=== PATIENT | female | born 2000 | race Caucasian/White ===

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

== ENCOUNTER 2020-04-21 07:43 | Day surgery (SDC) | payer OTHER ==
[~2020-04-21] VITALS: Ht 167 cm; Wt 86.0 kg
[~2020-04-21 07:43] MED LIST changes: +ACHD5005 PO; -HYDR-3812 PO; -IBUP-2055 PO; +IBUP-2473 PO; +PRD10T PO
[2020-04-21] MEDS ORDERED: ANTACID SUSP 30 ML UDC (MYLANTA) ONE (08:08)
[2020-04-21] MEDS ORDERED: ONDANSETRON 4 MG/2 ML (SDV) Z0FRAN ONE (08:08)
[2020-04-21] MEDS ORDERED: LACTATED RINGERS 1,000 ML IV ONE ×3 (08:08→12:30)
[2020-04-21] MEDS ORDERED: FAMOTIDINE 20MG/2ML IV (PEPCID) IV STA (08:09)
[2020-04-21] MEDS ORDERED: FAMOTIDINE 20MG/2ML IV (PEPCID) ONE (08:09)
[2020-04-21] MEDS ORDERED: LIDOCAINE 2% VISCOUS 15 ML UDC ONE (08:09)
[2020-04-21] MEDS ORDERED: ANTACID SUSP 30 ML UDC (MYLANTA) PO ONE (08:15)
[2020-04-21] MEDS ORDERED: LIDOCAINE 2% VISCOUS 15 ML UDC PO ONE (08:15)
[2020-04-21] MEDS ORDERED: ONDANSETRON 4 MG/2 ML (SDV) Z0FRAN IVP ONE ×2 (08:15→16:00)
--- NOTE | 2020-04-21 08:16 | ED Abdominal Pain ---
General Stated Complaint: SOB, BODY ACHES Source of Information: Patient Exam Limitations: No Limitations History of Present Illness Date Seen by Provider: Apr 21, 2020 Time Seen by Provider: 07:55 Initial Comments The patient presents to the ER by private conveyance from home with chief complaint of what she describes as chest pain as she points at her epigastric region. She says it started late last night after eating chicken noodles for dinner. It is worse with laying down flat. She took an ibuprofen 800 mg with no significant relief. She did not try any antacids. She says the pain radiates up to her left shoulder. She has had her appendix out but no other abdominal surgeries. Last menstrual period was March 28. She has an IUD in place and no other significant medical history. No one else is sick and she has had no fevers or chills. She says it makes her feel like it is hard to catch her breath and rates her pain as an 8 out of 10, cramping. She is felt constipated and unable to have a bowel movement and has had nausea with retching since yesterday. Primary care by Dr. Mckenna Allergies and Home Medications Allergies Coded Allergies: Kaylee Known Allergies (Verified Allergy, Unknown, 06/14/06) Home Medications Cyclobenzaprine HCl 10 Mg Tablet, 10 MG PO HS PRN for SPASMS Prescribed by: CHETAN HERNANDES on 10/03/16212 Escitalopram Oxalate 20 Mg Tablet, 20 MG PO DAILY, (Reported) Hydroxyzine Pamoate 50 Mg Capsule, 50 MG PO Q6H Prescribed by: SHON WARD on 12/02/15 3487 Norgestimate-Ethinyl Estradiol 1 Each Tablet, 1 TAB PO DAILY, (Reported) Prednisone 10 Mg Tab, 10 MG PO DAILY Prescribed by: CHETAN HERNANDES on 10/03/16212 Patient Home Medication List Home Medication List Reviewed: Yes Review of Systems Review of Systems Constitutional: No chills, No diaphoresis EENTM: No Blurred Vision, No Double Vision Respiratory: Denies Cough, Denies Orthopnea; Shortness of Air Cardiovascular: Chest Pain; Denies Edema, Denies Lightheadedness Gastrointestinal: Abdominal Pain, Constipated; Denies Diarrhea; Nausea, Vomiting Genitourinary: Denies Burning, Denies Discharge Musculoskeletal: No back pain, No joint pain Psychiatric/Neurological: Denies Depressed, Denies Headache All Other Systems Reviewed Negative Unless Noted: Yes Past Tpcspzl-Hojrua-Lpsgne Hx Patient Social History Alcohol Use: Denies Use Smoking Status: Never a Smoker Recent Hopitalizations: No Immunizations Up To Date PED Vaccines UTD: Yes Seasonal Allergies Seasonal Allergies: No Past Medical History Surgeries: Yes (CYSTOSCOPY; LAP APPY 11/27/14) Appendectomy, Tonsillectomy Respiratory: Yes (PRN INHALER) Asthma Cardiac: No Neurological: No Reproductive Disorders: No Female Reproductive Disorders: Denies UTI-Chronic Gastrointestinal: No Musculoskeletal: No Endocrine: No Cancer: No Psychosocial: Yes Anxiety, Depression Integumentary: No Blood Disorders: No Family Medical History Anxiety disorder 19 MOTHER Arthritis 19 MOTHER Diabetes mellitus 19 MOTHER FH: depression 19 MOTHER Hypercholesterolemia 19 MOTHER Hypertension 19 MOTHER Physical Exam Vital Signs Vital Signs - First Documented 04/21/20 08:00 Temp 36.0 Pulse 125 Resp 24 B/P (MAP) 130/80 (97) Pulse Ox 100 O2 Delivery Room Air Capillary Refill : Height/Weight/BMI Height: 5'7.00" Weight: 215lbs. 0.0oz. 97.735622vi; 28.12 BMI Method:Stated General Appearance: WD/WN, moderate distress HEENT: PERRL/EOMI, pharynx normal Neck: full range of motion, normal inspection Respiratory: lungs clear, normal breath sounds, no respiratory distress, no acc essory muscle use Cardiovascular: normal peripheral pulses, regular rate, rhythm Peripheral Pulses: 2+ Radial Pulses (R), 2+ Radial Pulses (L) Gastrointestinal: normal bowel sounds (Quiescent ), no organomegaly, guarding, tenderness (Epigastric left upper quadrant and right upper quadrant with positive Bennett sign) Extremities: normal range of motion, non-tender, normal inspection, no pedal edema, no calf tenderness, normal capillary refill Neurologic/Psychiatric: alert, oriented x 3 Skin: normal color, warm/dry Progress/Results/Core Measures Results/Orders Lab Results Laboratory Tests Test 04/21/20 08:05 04/21/20 08:10 04/21/20 09:10 Range/Units Coronavirus 2019 (HUSSAIN) Negative Negative White Blood Count 14.4 H 4.3-11.0 10^3/uL Red Blood Count 3.84 3.80-5.11 10^6/uL Hemoglobin 11.8 11.5-16.0 g/dL Hematocrit 35 35-52 % Mean Corpuscular Volume 90 80-99 fL Mean Corpuscular Hemoglobin 31 25-34 pg Mean Corpuscular Hemoglobin Concent 34 32-36 g/dL Red Cell Distribution Width 12.5 10.0-14.5 % Platelet Count 357 130-400 10^3/uL Mean Platelet Volume 9.6 9.0-12.2 fL Immature Granulocyte % (Auto) 0 % Neutrophils (%) (Auto) 69 42-75 % Lymphocytes (%) (Auto) 23 12-44 % Monocytes (%) (Auto) 7 0-12 % Eosinophils (%) (Auto) 0 0-10 % Basophils (%) (Auto) 0 0-10 % Neutrophils # (Auto) 10.0 H 1.8-7.8 10^3/uL Lymphocytes # (Auto) 3.3 1.0-4.0 10^3/uL Monocytes # (Auto) 1.0 0.0-1.0 10^3/uL Eosinophils # (Auto) 0.1 0.0-0.3 10^3/uL Basophils # (Auto) 0.1 0.0-0.1 10^3/uL Immature Granulocyte # (Auto) 0.0 0.0-0.1 10^3/uL Neutrophils % (Manual) 64 % Lymphocytes % (Manual) 26 % Monocytes % (Manual) 8 % Eosinophils % (Manual) 1 % Basophils % (Manual) 1 % Blood Morphology Comment NORMAL Sodium Level 139 135-145 MMOL/L Potassium Level 3.7 3.6-5.0 MMOL/L Chloride Level 108 H 98-107 MMOL/L Carbon Dioxide Level 20 L 21-32 MMOL/L Anion Gap 11 5-14 MMOL/L Blood Urea Nitrogen 17 7-18 MG/DL Creatinine 0.70 0.60-1.30 MG/DL Estimat Glomerular Filtration Rate > 60 BUN/Creatinine Ratio 24 Glucose Level 117 H 70-105 MG/DL Calcium Level 8.6 8.5-10.1 MG/DL Corrected Calcium 8.4 L 8.5-10.1 MG/DL Total Bilirubin 0.9 0.1-1.0 MG/DL Aspartate Amino Transf (AST/SGOT) 11 5-34 U/L Alanine Aminotransferase (ALT/SGPT) 12 0-55 U/L Alkaline Phosphatase 64 40-136 U/L C-Reactive Protein High Sensitivity 0.24 0.00-0.50 MG/DL Total Protein 6.8 6.4-8.2 GM/DL Albumin 4.2 3.2-4.5 GM/DL Lipase 14 8-78 U/L Urine Color ORANGE Urine Clarity SL CLOUDY Urine pH 6.5 5-9 Urine Specific Lead 1.025 H 1.016-1.022 Urine Protein TRACE H NEGATIVE Urine Glucose (UA) NEGATIVE NEGATIVE Urine Ketones NEGATIVE NEGATIVE Urine Nitrite NEGATIVE NEGATIVE Urine Bilirubin NEGATIVE NEGATIVE Urine Urobilinogen 0.2 < = 1.0 MG/DL Urine Leukocyte Esterase TRACE H NEGATIVE Urine RBC (Auto) NEGATIVE NEGATIVE Urine RBC NONE /HPF Urine WBC 2-5 /HPF Urine Squamous Epithelial Cells 2-5 /HPF Urine Crystals NONE /LPF Urine Bacteria MODERATE H /HPF Urine Casts NONE /LPF Urine Mucus MODERATE H /LPF Urine Culture Indicated YES My Orders Orders - BROOKLYNN WHITNEY Chest 1 View, Ap/Pa Only (04/21/20 08:09) Hs C Reactive Protein (04/21/20 08:09) Ua Culture If Indicated (04/21/20 08:09) Urine Bedside (04/21/20 08:09) Cbc With Automated Diff (04/21/20 08:09) Comprehensive Metabolic Panel (04/21/20 08:09) Lipase (04/21/20 08:09) Covid 19 Inhouse Test (04/21/20 08:09) Ondansetron Injection (Zofran Injectio (04/21/20 08:15) Lactated Ringers (Lr 1000 Ml Iv Solution (04/21/20 08:15) Lidocaine 2% Viscous 15 Ml (Xylocaine Vi (04/21/20 08:15) Antacid Suspension (Mylanta Suspension (04/21/20 08:15) Famotidine Injection (Pepcid Injection) (04/21/20 08:09) Lactated Ringers (Lr 1000 Ml Iv Solution (04/21/20 08:08) Antacid Suspension (Mylanta Suspension (04/21/20 08:08) Ondansetron Injection (Zofran Injectio (04/21/20 08:08) Lidocaine 2% Viscous 15 Ml (Xylocaine Vi (04/21/20 08:09) Famotidine Injection (Pepcid Injection) (04/21/20 08:09) Manual Differential (04/21/20 08:10) Us Gallbladder 60[address] (04/21/20 09:16) Ed Iv/Invasive Line Start (04/21/20 09:16) Ketorolac Injection (Toradol Injection) (04/21/20 09:30) Urine Culture (04/21/20 09:10) Ct Abdomen/Pelvis W (04/21/20 10:23) Iohexol Injection (Omnipaque 350 Mg/Ml 1 (04/21/20 10:30) Received Contrast (Hold Metformin- Contr (04/21/20 10:30) Sodium Chloride Flush (Catheter Flush Sy (04/21/20 10:30) Ns (Ivpb) (Sodium Chloride 0.9% Ivpb Bag (04/21/20 10:30) Fentanyl Injection (Sublimaze Injection (04/21/20 10:30) Blood Culture (04/21/20 12:18) Lactic Acid Analyzer (04/21/20 12:18) Neis Yoel Dna Urine Test (04/21/20 12:18) Chlamydia Trachomatis Urine (04/21/20 12:18) Syphilis Antibody Screen (04/21/20 12:18) Piperacillin Sodium/Tazobactam (Zosyn Vi (04/21/20 12:30) Doxycycline Injection (Vibramycin Inject (04/21/20 12:30) Fentanyl Injection (Sublimaze Injection (04/21/20 12:30) Protime With Inr (04/21/20 12:23) Partial Thromboplastin Time (04/21/20 12:23) Ed Iv/Invasive Line Start (04/21/20 12:23) Ed Iv/Invasive Line Start (04/21/20 12:23) Vital Signs Adult Sepsis Patie Q15M (04/21/20 12:23) O2 (04/21/20 12:23) Remove Rings In Anticipation O (04/21/20 12:23) Lactated Ringers (Lr 1000 Ml Iv Solution (04/21/20 12:30) Medications Given in ED Current Medications Medications Dose Ordered Sig/Susan Route Start Time Stop Time Status Last Admin Dose Admin Al Hydrox/Mg Hydrox/Simethicone 30 ml ONCE ONCE PO 2/22/21 08:15 04/21/20 08:16 DC 04/21/20 08:15 30 ML Fentanyl Citrate 50 mcg ONCE ONCE IVP 04/21/20 10:30 04/21/20 10:31 DC 04/21/20 10:36 50 MCG Iohexol 100 ml ONCE ONCE IV 04/21/20 10:30 04/21/20 10:31 DC 04/21/20 10:44 100 ML Ketorolac Tromethamine 30 mg ONCE ONCE IVP 04/21/20 09:30 04/21/20 09:31 DC 04/21/20 09:30 30 MG Lactated Ringer's 1,000 ml @ 0 mls/hr Q0M ONCE IV 04/21/20 08:15 04/21/20 08:16 DC 04/21/20 08:15 1,000 MLS/HR Lidocaine HCl 15 ml ONCE ONCE PO 04/21/20 08:15 04/21/20 08:16 DC 04/21/20 08:15 15 ML Ondansetron HCl 8 mg ONCE ONCE IVP 04/21/20 08:15 04/21/20 08:16 DC 04/21/20 08:15 8 MG Sodium Chloride 10 ml NEEDED PRN IV 04/21/20 10:30 04/21/20 10:44 10 ML Sodium Chloride 100 ml ONCE ONCE IV 04/21/20 10:30 04/21/20 10:31 DC 04/21/20 10:44 80 ML Vital Signs/I&O 04/21/20 08:00 Temp 36.0 Pulse 125 Resp 24 B/P (MAP) 130/80 (97) Pulse Ox 100 O2 Delivery Room Air Progress Progress Note #1: Time: 08:15 Progress Note The patient indicates her epigastric region. She is on NSAIDs for the past 3 weeks for TMJ so gastritis, PUD, GERD, gallbladder or less likely pancreatitis or possibilities. It is not felt that her shortness of breath or pain is coming from her chest however we will get an x-ray and check labs including a lipase and urinalysis. We will start with a GI cocktail and ondansetron for nausea and reexamine her. Progress Note #2: Time: 09:18 Progress Note The patient's nausea is gone however her pain is untouched 7 out of 10. We are able to get a better examination of her abdomen with some mild right lower q uadrant tenderness, moderate epigastric tenderness and most of her tenderness in the right upper quadrant with positive Bennett sign. She did have a sip of water at 430 this morning. GI cocktail did nothing for her pain. Plan to get an ultrasound of her gallbladder. Toradol for her discomfort. Progress Note #3: Time: 10:24 Progress Note Ruptured ovarian cyst could explain the free fluid seen in her abdomen on ultrasound. We are going to get a CT just to rule out any other significant pathology. Diagnostic Imaging Diagonstic Imaging: Xray Plain Films/CT/US/NM/MRI: chest Comments [facility] [place] [place] NAME: OLEG CHRISTY [facility] REC#: [id number] PT STATUS: REG ER : 2000 PHYSICIAN: BROOKLYNN WHITNEY MD ADMIT DATE: 04/21/20/ER Draft Date of Exam:04/21/20 CHEST 1 VIEW, AP/PA ONLY INDICATION: Shortness of air. TIME OF EXAM: 8:31 AM. COMPARISON: Correlation is made with the prior chest radiograph from 12/01/2015. FINDINGS: The heart size is normal. The pulmonary vascularity is unremarkable. The lungs are clear. No infiltrate, effusion, or pneumothorax is detected. IMPRESSION: No acute cardiopulmonary process is detected. Dictated on workstation # [id number] Dict: 04/21/20 0838 Trans: 04/21/20 0839 [id number] Interpreted by: GEOFFREY BARBOSA MD Electronically signed by: Reviewed: Reviewed by Me Diagonstic Imaging: Ultrasound Plain Films/CT/US/NM/MRI: abdomen (ruq) Comments Small amount of anechoic fluid around the liver. No ductal dilatation or cholecystitis or stones. [facility] [place], [place] NAME: OLEG CHRISTY [employer] REC#: [id number] PT STATUS: REG ER : 2000 PHYSICIAN: BROOKLYNN WHITNEY MD ADMIT DATE: 04/21/20/ER Signed Date of Exam:04/21/20 US GALLBLADDER [id number] PROCEDURE: US Gallbladder. TECHNIQUE: Multiple real-time grayscale images were obtained over the right upper quadrant in various projections. INDICATION: Right upper quadrant pain. Positive Bennett's sign. COMPARISON: None. FINDINGS: Imaged portions of the pancreas are unremarkable. The body and tail are obscured by bowel gas. Imaged portions of the aorta and IVC appear normal. Echogenicity of the liver appears normal with no focal lesions. No biliary dilatation is seen. There is a small amount of free fluid about the liver and in Morison's pouch. The main portal vein is hepatopetal. The common bile duct is normal in size measuring 5 mm. The gallbladder demonstrates a thin wall with no calcified stones. Sonographic Bennett's sign is negative. The right kidney measures 12.2 cm in length. Echogenicity appears normal. There is no hydronephrosis or shadowing stone. IMPRESSION: 1. No cholelithiasis or cholecystitis. No acute hepatic abnormality is seen. 2. Small amount of ascites. Dictated by: Dictated on workstation # [id number] Dict: 04/21/20 1050 Trans: 04/21/20 1057 [id number] Interpreted by: STEVEN VELIZ MD Electronically signed by: STEVEN VELIZ MD 04/21/20 1057 Reviewed: Reviewed by Hi Diagonstic Imaging: CT Plain Films/CT/US/NM/MRI: abdomen, pelvis Comments [facility] [place] [place] [place] NAME: OLEG CHRISTY Jose Antonio [facility] REC#: [id number] PT STATUS: REG ER : 2000 PHYSICIAN: BROOKLYNN WHITNEY MD ADMIT DATE: 04/21/20/ER Draft Date of Exam:04/21/20 CT ABDOMEN/PELVIS W EXAMINATION: CT Abdomen and Pelvis with intravenous contrast. TECHNIQUE: Multiple contiguous axial images were obtained through the abdomen and pelvis after the uneventful administration of intravenous contrast. All CT scans use one or more of the following dose optimizing techniques: automated exposure control, MA and/or KvP adjustment based on a patient size and exam type, or iterative reconstruction. HISTORY: Abdominal pain. COMPARISON: 12/02/2014 FINDINGS: Limited views of the lower thorax are unremarkable. There is a cyst in segment seven of the liver, new from prior exam and measuring 11 mm. There is no biliary ductal dilation. Gallbladder is normal. Pancreas is normal. Spleen is normal. Adrenal glands are normal. The kidneys are normal. There is no hydronephrosis. Urinary bladder is normal. An intrauterine device is present. The pelvic fat planes are effaced and there is a moderate amount of fluid in the pelvis with a right ovarian 3.2 x 2.8 cm rim-enhancing collection. Pelvic fluid extends along both pericolic gutters and surrounds the liver and spleen. Visualized bowel is normal in caliber without obstruction or inflammation. There is no free air. No abdominal or pelvic lymphadenopathy. Aorta is normal in caliber without aneurysm. There are no suspicious osseous lesions. IMPRESSION: 1. Extensive stranding and fluid in the pelvis with effacement of the pelvic fat planes and fluid extending along both pericolic gutters surrounds the spleen and liver with an associated 3.2 x 2.8 cm rim-enhancing collection in the right adnexa. Findings are most concerning for pelvic inflammatory disease with tubo-ovarian abscess. Dictated on workstation # [id number] Dict: 04/21/20 1052 Trans: 04/21/20 1109 [id number] Interpreted by: TALISHA UMANZOR MD Electronically signed by: Reviewed: Reviewed by Me Departure Communication (Admissions) Time/Spoke to Admitting Phy: 12:15 Discussed the case with Dr. Pinto, obstetrics and she agrees to admit the patient on antibiotics and if not improving will do surgery today. N.p.o. status. Cultures and gonorrhea chlamydia. Impression Primary Impression: Tubal ovarian abscess Additional Impression: Sepsis Qualified Codes: A41.9 - Sepsis, unspecified organism Disposition: ADMITTED INPATIENT Condition: Stable Admissions Decision to Admit Reason: Admit from ER (General) Decision to Admit/Date: Apr 21, 2020 Time/Decision to Admit Time: 12:00 Departure-Patient Inst. Referrals: KING MCKENNA DO (PCP/Family) Primary Care Physician BROOKLYNN WHITNEY Apr 21, 2020 08:16
[2020-04-21 08:24] LABS: BASOPHILS # (AUTO) 0.1 10^3/uL (0.0-0.1); BASOPHILS % (AUTO) 0 % (0-10); EOSINOPHILS # (AUTO) 0.1 10^3/uL (0.0-0.3); EOSINOPHILS % (AUTO) 0 % (0-10); HEMATOCRIT 35 % (35-52); HEMOGLOBIN 11.8 g/dL (11.5-16.0); LYMPHOCYTES # (AUTO) 3.3 10^3/uL (1.0-4.0); LYMPHOCYTES % (AUTO) 23 % (12-44); MEAN CORPUSCULAR HEMOGLOBIN 31 pg (25-34); MEAN CORPUSCULAR HGB CONC 34 g/dL (32-36); MEAN CORPUSCULAR VOLUME 90 fL (80-99); MEAN PLATELET VOLUME 9.6 fL (9.0-12.2); MONOCYTES % (AUTO) 7 % (0-12); NEUTROPHILS % (AUTO) 69 % (42-75); PLATELET COUNT 357 10^3/uL (130-400); WHITE BLOOD COUNT 14.4 10^3/uL (4.3-11.0)
[2020-04-21 08:30] LABS: ALBUMIN 4.2 GM/DL (3.2-4.5); CHLORIDE 108 MMOL/L (98-107); POTASSIUM 3.7 MMOL/L (3.6-5.0); SODIUM 139 MMOL/L (135-145)
[2020-04-21 08:31] LABS: CALCIUM 8.6 MG/DL (8.5-10.1)
[2020-04-21 08:32] LABS: GLUCOSE 117 MG/DL (70-105); TOTAL PROTEIN 6.8 GM/DL (6.4-8.2)
[2020-04-21 08:33] LABS: CARBON DIOXIDE 20 MMOL/L (21-32)
[2020-04-21 08:34] LABS: BILIRUBIN,TOTAL 0.9 MG/DL (0.1-1.0)
[2020-04-21 08:36] LABS: ALKALINE PHOSPHATASE 64 U/L (40-136); GFR ESTIMATED > 60
[2020-04-21 08:37] LABS: BUN/CREATININE RATIO 24
[2020-04-21 08:39] LABS: ALANINE AMINOTRANSFERASE 12 U/L (0-55); LIPASE 14 U/L (8-78)
--- NOTE | 2020-04-21 08:40 | Diagnostic Imaging Report ---
INDICATION: Shortness of air. TIME OF EXAM: 8:31 AM. COMPARISON: Correlation is made with the prior chest radiograph from 12/01/2015. FINDINGS: The heart size is normal. The pulmonary vascularity is unremarkable. The lungs are clear. No infiltrate, effusion, or pneumothorax is detected. IMPRESSION: No acute cardiopulmonary process is detected. Dictated by: Dictated on workstation # [id number]
[2020-04-21 08:43] LABS: BASOPHILS % (MANUAL) 1 %; EOSINOPHILS % (MANUAL) 1 %; LYMPHOCYTES % (MANUAL) 26 %; MONOCYTES % (MANUAL) 8 %; NEUTROPHILS % (MANUAL) 64 %; RBC MORPH NORMAL
[2020-04-21 09:22] LABS: BILIRUBIN,URINE NEGATIVE (NEGATIVE); CLARITY,URINE SL CLOUDY; COLOR,URINE ORANGE; GLUCOSE, URINE (UA) NEGATIVE (NEGATIVE); KETONES,URINE NEGATIVE (NEGATIVE); LEUKOCYTE ESTERASE ,URINE TRACE (NEGATIVE); NITRITE,URINE NEGATIVE (NEGATIVE); PH,URINE 6.5 (5-9); PROTEIN,URINE TRACE (NEGATIVE)
[2020-04-21 09:29] LABS: BACTERIA,URINE MODERATE /HPF
[2020-04-21] MEDS ORDERED: KETOROLAC 30 MG/ML VIAL IVP ONE (09:30)
[2020-04-21] MEDS ORDERED: IOHEXOL 350 MG/ML 100 ML (OMNIPAQUE 350) VIAL IV ONE (10:30)
[2020-04-21] MEDS ORDERED: fentaNYL INJECTION 100 MCG/2 ML AMP IVP ONE ×2 (10:30→12:30)
[2020-04-21] MEDS ORDERED: NS 100 ML (IVPB) BAG IV ONE (10:30)
[2020-04-21] MEDS ORDERED: CATHETER FLUSH 10 ML SYR IV PRN ×2 (10:30→16:30)
[2020-04-21] MEDS ORDERED: HOLD METFORMIN - RECEIVED CONTRAST 20 ML VIAL IV SCH (10:30)
--- NOTE | 2020-04-21 10:57 | Diagnostic Imaging Report ---
PROCEDURE: US Gallbladder. TECHNIQUE: Multiple real-time grayscale images were obtained over the right upper quadrant in various projections. INDICATION: Right upper quadrant pain. Positive Bennett's sign. COMPARISON: None. FINDINGS: Imaged portions of the pancreas are unremarkable. The body and tail are obscured by bowel gas. Imaged portions of the aorta and IVC appear normal. Echogenicity of the liver appears normal with no focal lesions. No biliary dilatation is seen. There is a small amount of free fluid about the liver and in Morison's pouch. The main portal vein is hepatopetal. The common bile duct is normal in size measuring 5 mm. The gallbladder demonstrates a thin wall with no calcified stones. Sonographic Bennett's sign is negative. The right kidney measures 12.2 cm in length. Echogenicity appears normal. There is no hydronephrosis or shadowing stone. IMPRESSION: 1. No cholelithiasis or cholecystitis. No acute hepatic abnormality is seen. 2. Small amount of ascites. Dictated by: Dictated on workstation # [id number]
--- NOTE | 2020-04-21 11:09 | Diagnostic Imaging Report ---
EXAMINATION: CT Abdomen and Pelvis with intravenous contrast. TECHNIQUE: Multiple contiguous axial images were obtained through the abdomen and pelvis after the uneventful administration of intravenous contrast. All CT scans use one or more of the following dose optimizing techniques: automated exposure control, MA and/or KvP adjustment based on a patient size and exam type, or iterative reconstruction. HISTORY: Abdominal pain. COMPARISON: 12/02/2014 FINDINGS: Limited views of the lower thorax are unremarkable. There is a cyst in segment seven of the liver, new from prior exam and measuring 11 mm. There is no biliary ductal dilation. Gallbladder is normal. Pancreas is normal. Spleen is normal. Adrenal glands are normal. The kidneys are normal. There is no hydronephrosis. Urinary bladder is normal. An intrauterine device is present. The pelvic fat planes are effaced and there is a moderate amount of fluid in the pelvis with a right ovarian 3.2 x 2.8 cm rim-enhancing collection. Pelvic fluid extends along both pericolic gutters and surrounds the liver and spleen. Visualized bowel is normal in caliber without obstruction or inflammation. There is no free air. No abdominal or pelvic lymphadenopathy. Aorta is normal in caliber without aneurysm. There are no suspicious osseous lesions. IMPRESSION: 1. Extensive stranding and fluid in the pelvis with effacement of the pelvic fat planes and fluid extending along both pericolic gutters surrounds the spleen and liver with an associated 3.2 x 2.8 cm rim-enhancing collection in the right adnexa. Findings are most concerning for pelvic inflammatory disease with tubo-ovarian abscess. Dictated by: Dictated on workstation # [id number]
[2020-04-21] MEDS ORDERED: PIPERACILLIN SODIUM/TAZOBACTAM 4.5 GM in NS (IVPB) 100 ML IV ONE (12:30)
[2020-04-21] MEDS: DOXYCYCLINE INJECTION 100 MG in NS (IVPB) 100 ML IV ONE ×2 (13:25→15:01)
[2020-04-21 14:00] VITALS: BP 115/75
[2020-04-21] MEDS: LACTATED RINGERS 1,000 ML IV SCH (14:25)
[2020-04-21 14:51] LABS: INR 1.1 (0.8-1.4); PROTHROMBIN TIME PATIENT 14.9 SEC (12.2-14.7)
[2020-04-21] MEDS: KETOROLAC 30 MG/ML VIAL IVP SCH ×2 (14:51→21:12)
[2020-04-21 16:00] VITALS: BP 115/72
[2020-04-21] MEDS ORDERED: PIPERACILLIN/TAZO 4.5 GM/NS 100 ML IV NR ×2 (16:15)
[2020-04-21] MEDS ORDERED: morphine INJ 4 MG/ML 1 ML (VIAL/SYRINGE) IV PRN (16:15)
[2020-04-21] MEDS ORDERED: ONDANSETRON 4 MG/2 ML (SDV) Z0FRAN IV PRN (16:30)
[2020-04-21] MEDS ORDERED: LACTATED RINGERS 1,000 ML IV SCH (16:30)
--- NOTE | 2020-04-21 17:11 | Diagnostic Imaging Report ---
PROCEDURE: Pelvic complete, transabdominal and transvaginal sonogram. Limited pelvic doppler. TECHNIQUE: Multiple real-time grayscale images were obtained of the pelvis in various projections transabdominally and transvaginally. Limited pelvic duplex images were obtained. HISTORY: Sepsis, tubo-ovarian abscess. COMPARISON: None available. FINDINGS: There is an irregular mixed echogenicity collection in the right adnexa. There are central areas of mixed echogenicity but largely anechoic areas. The right adnexa overall measures 3.6 x 5.2 x 4.3 cm. There is hypervascularity around the wall of the central low echogenicity. Left ovary measures 4.2 x 2.1 x 3.0 cm. There appear to be bilateral dilated tubes. An intrauterine device is present. The uterus measures 8.4 x 2.4 x 5.5 cm. There is a small amount of free pelvic fluid. The adnexa are not well visualized due to edema and fluid in the pelvis. There is normal arterial inflow to both ovaries. IMPRESSION: 1. Findings most consistent with a right-sided tubo-ovarian abscess and pelvic inflammatory disease with an irregular right adnexal cystic and heterogeneous structure most consistent with an abscess and dilated bilateral fallopian tube suggestive of pyosalpinx. Dictated by: Dictated on workstation # [id number]
--- NOTE | 2020-04-21 17:16 | History & Physical-OB/GYN ---
History of Present Illness History of Present Illness Reason for visit/HPI Patient presented to the ED this morning after acute onset of RUQ pain at 0430. Had nausea but no emesis. Was seen in ED and due to symptoms, had GB US. This was neg but there was pericolic fluid so CT abdomen was done. This suggested TOA in the right. WBC was elevated but she was afebrile. she was admitted for antibiotic treatment of TOA In the ED she received several doses of Iv Morphine and toradol. test was not done, or was not recorded. Patient reports she is and had paragard IUD placed 05/[address] Jefferson. She had been having regular menses. States she has not had a history of STI but has had regular discharge, though she states this was unchanged. No dyspareunia. Has had 2 paragards (1 after 1st .) States she had not had any previous pain, but has been taking 800 mg ibuprofen every 8 hours for 3 weeks due to TMJ pain. Previous history of LS appendectomy and ovarian cystectomy at age 13. WBC 14.4 on admission currently receiving Zosyn and doxycycline. she is complaining of Right abdominal pain and nausea. [facility]. [place], [place] NAME: OLEG CHRISTY [facility] REC#: [id number] PT STATUS: REG ER : 2000 PHYSICIAN: BROOKLYNN WHITNEY MD ADMIT DATE: 04/21/20/ER Signed Date of Exam:04/21/20 US GALLBLADDER [id number] PROCEDURE: US Gallbladder. TECHNIQUE: Multiple real-time grayscale images were obtained over the right upper quadrant in various projections. INDICATION: Right upper quadrant pain. Positive Bennett's sign. COMPARISON: None. FINDINGS: Imaged portions of the pancreas are unremarkable. The body and tail are obscured by bowel gas. Imaged portions of the aorta and IVC appear normal. Echogenicity of the liver appears normal with no focal lesions. No biliary dilatation is seen. There is a small amount of free fluid about the liver and in Morison's pouch. The main portal vein is hepatopetal. The common bile duct is normal in size measuring 5 mm. The gallbladder demonstrates a thin wall with no calcified stones. Sonographic Bennett's sign is negative. The right kidney measures 12.2 cm in length. Echogenicity appears normal. There is no hydronephrosis or shadowing stone. IMPRESSION: 1. No cholelithiasis or cholecystitis. No acute hepatic abnormality is seen. 2. Small amount of ascites. Dictated by: Dictated on workstation # [id number] Dict: 04/21/20 1050 Trans: 04/21/20 1057 [id number] Interpreted by: STEVEN VELIZ MD Electronically signed by: STEVEN VELIZ MD 04/21/20 1057 [facility]. [place] NAME: OLEG CHRISTY [facility] REC#: [id number] PT STATUS: ADM IN : 2000 PHYSICIAN: BROOKLYNN WHITNEY MD ADMIT DATE: 04/21/20/LDRP Signed Date of Exam:04/21/20 CT ABDOMEN/PELVIS W EXAMINATION: CT Abdomen and Pelvis with intravenous contrast. TECHNIQUE: Multiple contiguous axial images were obtained through the abdomen and pelvis after the uneventful administration of intravenous contrast. All CT scans use one or more of the following dose optimizing techniques: automated exposure control, MA and/or KvP adjustment based on a patient size and exam type, or iterative reconstruction. HISTORY: Abdominal pain. COMPARISON: 12/02/2014 FINDINGS: Limited views of the lower thorax are unremarkable. There is a cyst in segment seven of the liver, new from prior exam and measuring 11 mm. There is no biliary ductal dilation. Gallbladder is normal. Pancreas is normal. Spleen is normal. Adrenal glands are normal. The kidneys are normal. There is no hydronephrosis. Urinary bladder is normal. An intrauterine device is present. The pelvic fat planes are effaced and there is a moderate amount of fluid in the pelvis with a right ovarian 3.2 x 2.8 cm rim-enhancing collection. Pelvic fluid extends along both pericolic gutters and surrounds the liver and spleen. Visualized bowel is normal in caliber without obstruction or inflammation. There is no free air. No abdominal or pelvic lymphadenopathy. Aorta is normal in caliber without aneurysm. There are no suspicious osseous lesions. IMPRESSION: 1. Extensive stranding and fluid in the pelvis with effacement of the pelvic fat planes and fluid extending along both pericolic gutters surrounds the spleen and liver with an associated 3.2 x 2.8 cm rim-enhancing collection in the right adnexa. Findings are most concerning for pelvic inflammatory disease with tubo-ovarian abscess. Dictated by: Dictated on workstation # [id number] Dict: 04/21/20 1052 Trans: 04/21/20 1720 [id number] Interpreted by: TALISHA UMANZOR MD Electronically signed by: TALISHA UMANZOR MD 04/21/20 1720 [facility] [place] [place] NAME: OLEG CHRISTY [facility] REC#: [id number] PT STATUS: ADM IN : 2000 PHYSICIAN: BRIA DILL DO ADMIT DATE: 04/21/20/LDRP Signed Date of Exam:04/21/20 US NON OB PELVIS COMP/TRANSVAG PROCEDURE: Pelvic complete, transabdominal and transvaginal sonogram. Limited pelvic doppler. TECHNIQUE: Multiple real-time grayscale images were obtained of the pelvis in various projections transabdominally and transvaginally. Limited pelvic duplex images were obtained. HISTORY: Sepsis, tubo-ovarian abscess. COMPARISON: None available. FINDINGS: There is an irregular mixed echogenicity collection in the right adnexa. There are central areas of mixed echogenicity but largely anechoic areas. The right adnexa overall measures 3.6 x 5.2 x 4.3 cm. There is hypervascularity around the wall of the central low echogenicity. Left ovary measures 4.2 x 2.1 x 3.0 cm. There appear to be bilateral dilated tubes. An intrauterine device is present. The uterus measures 8.4 x 2.4 x 5.5 cm. There is a small amount of free pelvic fluid. The adnexa are not well visualized due to edema and fluid in the pelvis. There is normal arterial inflow to both ovaries. IMPRESSION: 1. Findings most consistent with a right-sided tubo-ovarian abscess and pelvic inflammatory disease with an irregular right adnexal cystic and heterogeneous structure most consistent with an abscess and dilated bilateral fallopian tube suggestive of pyosalpinx. Dictated by: Dictated on workstation # [id number] Dict: 04/21/20 1704 Trans: 04/21/[address] [facility] [id number] Interpreted by: TALISHA UMANZOR MD Electronically signed by: TALISHA UMANZOR MD 04/21/201719 Date of Admission Apr 21, 2020 at 12:25 Time Seen by a Provider: 17:00 I consulted on this patient on 04/21/20 17:16 Attending Physician Bria Dill DO Admitting Physician [place] Consult Allergies and Home Medications Allergies Coded Allergies: NKANo Known Allergies (Verified Allergy, Unknown, 06/14/06) Home Medications Cyclobenzaprine HCl 10 Mg Tablet, 10 MG PO HS PRN for SPASMS Prescribed by: CHETAN HERNANDES on 10/03/16212 Sertraline HCl 100 Mg Tablet, 100 MG PO DAILY, (Reported) Patient Home Medication List Home Medication List Reviewed: Yes Past Bwlgacl-Vqfxqs-Nnqufu Hx Patient Social History Marrital Status: single Number of Children: 2 Number of living children: 2 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) Smoking Status: Never a Smoker Recent Hopitalizations: No Immunizations Up To Date Tetanus Booster (TDap): Unknown Pediatric: Yes Seasonal Allergies Seasonal Allergies: No Surgeries Yes (CYSTOSCOPY; LAP APPY 11/27/14) Appendectomy, Tonsillectomy Respiratory Yes (PRN INHALER) Asthma Cardiovascular No Neurological No Reproductive System : No (IUD) Last Menstrual Period: Mar 28, 2020 Hx Reproductive Disorders: No Female Reproductive Disorders: Denies [employer]IT TECHNICIAN History: IUD Genitourinary UTI-Chronic Gastrointestinal No Musculoskeletal No Endocrine History of Endocrine Disorders: No Cancer No Psychosocial History of Psychiatric Problem: Yes Behavioral Health Disorders: Anxiety, Depression Integumentary History of Skin or Integumenta: No Blood Transfusions History of Blood Disorders: No Family Medical History Family Hx: Anxiety disorder 19 MOTHER Arthritis 19 MOTHER Diabetes mellitus 19 MOTHER FH: depression 19 MOTHER Hypercholesterolemia 19 MOTHER Hypertension 19 MOTHER Review of Systems Constitutional: see HPI EENTM: see HPI Respiratory: see HPI Cardiovascular: see HPI Gastrointestinal: RUQ, nausea Genitourinary: see HPI : No Musculoskeletal: no symptoms reported Skin: no symptoms reported Psychiatric/Neurological: No Symptoms Reported All Other Systems Reviewed Negative Unless Noted: Yes Physical Exam Physical Exam Vital Signs Vital Signs Date Time Temp Pulse Resp B/P (MAP) Pulse Ox O2 Delivery O2 Flow Rate FiO2 04/22/20 06:20 36.7 79 18 100/52 (68) 98 Room Air 04/22/20 03:45 36.7 72 16 100/60 (73) 98 Room Air 04/21/20 23:25 36.2 78 18 108/51 (70) 98 Room Air 04/21/20 19:30 37.3 75 18 110/59 (76) 100 Room Air 04/21/20 16:00 37.1 90 18 115/72 (86) 100 Room Air 04/21/20 14:00 37.1 84 18 115/75 (88) 100 Room Air 04/21/20 13:40 93 20 132/80 98 Room Air I & O 04/22/20 07:00 Intake Total 3320 ml Balance 3320 ml Capillary Refill : Less Than 3 Seconds Labs Laboratory Tests 04/21/20 09:10: Urine Color ORANGE, Urine Clarity SL CLOUDY, Urine pH 6.5, Urine Specific [place] 1.025H, Urine Protein TRACEH, Urine Glucose (UA) NEGATIVE, Urine Ketones NEGATIVE, Urine Nitrite NEGATIVE, Urine Bilirubin NEGATIVE, Urine Urobilinogen 0.2, Urine Leukocyte Esterase TRACEH, Urine RBC (Auto) NEGATIVE, Urine RBC NONE, Urine WBC 2-5, Urine Squamous Epithelial Cells 2-5, Urine Crystals NONE, Urine Bacteria MODERATEH, Urine Casts NONE, Urine Mucus MODERATEH, Urine Culture Indicated YES, Syphilis Serology Non-Reactive 04/21/20 14:17: Prothrombin Time 14.9H, INR Comment 1.1, Activated Partial Thromboplast Time 27, Lactic Acid Level 0.81, Human Chorionic Gonadotropin, Quant < 5 04/22/20 05:10: White Blood Count 6.8, Red Blood Count 2.88L, Hemoglobin 8.7#L, Hematocrit 27L, Mean Corpuscular Volume 93, Mean Corpuscular Hemoglobin 30, Mean Corpuscular He moglobin Concent 33, Red Cell Distribution Width 12.5, Platelet Count 241, Mean Platelet Volume 9.4, Immature Granulocyte % (Auto) 0, Neutrophils (%) (Auto) 46, Lymphocytes (%) (Auto) 42, Monocytes (%) (Auto) 10, Eosinophils (%) (Auto) 1, Basophils (%) (Auto) 0, Neutrophils # (Auto) 3.1, Lymphocytes # (Auto) 2.9, Monocytes # (Auto) 0.7, Eosinophils # (Auto) 0.1, Basophils # (Auto) 0.0, Immature Granulocyte # (Auto) 0.0 04/22/20 08:10: General Appearance: Mild Distress Respiratory: Chest Non Tender, Lungs Clear Cardiovascular: Regular Rate, Rhythm Abdominal: normal bowel sounds, tenderness, RLQ Gynecology/General: Other (not examined) Pelvic Exam: deferred Assessment/Plan Assessment and Plan 1. acute pelvic pain 2. tuboovarian abscess 3. PID Plan IV antibiotics. If no improvement in 24 hours then plan Laparoscopy Admission Diagnosis Admission Status: Observation BRIA DILL DO Apr 21, 2020 17:16
[2020-04-21] MEDS ORDERED: SERT100T PO (18:36)
[2020-04-21] MEDS: fentaNYL INJECTION 100 MCG/2 ML AMP IV PRN (18:57)
[2020-04-21] MEDS ORDERED: CYCLOBENZAPRINE 10 MG (FLEXERIL) TAB PO PRN (19:00)
[2020-04-21] MEDS ORDERED: FLU QUADRIvalent (3YOA+) 60 mcg/0.5 ml 2020-21 (AFLURIA) IM ONE (19:15)
[2020-04-21 19:30] VITALS: BP 110/59
[2020-04-21] MEDS: PIPERACILLIN/TAZO 4.5 GM/NS 100 ML IV SCH ×2 (20:27)
[2020-04-21] MEDS ORDERED: SERTRALINE 100 MG (ZOLOFT) TAB PO SCH (21:00)
[2020-04-21] MEDS ORDERED: DOXYCYCLINE INJECTION 100 MG in NS (IVPB) 100 ML IV SCH (22:00)
[2020-04-21 23:25] VITALS: BP 108/51
[2020-04-22] VITALS (16 sets, daily range): BP systolic 87–131; BP diastolic 46–75
[2020-04-22] MEDS: LACTATED RINGERS 1,000 ML IV SCH ×2 (01:30→09:58)
[2020-04-22] MEDS: PIPERACILLIN/TAZO 4.5 GM/NS 100 ML IV SCH ×2 (03:41)
[2020-04-22] MEDS: KETOROLAC 30 MG/ML VIAL IVP SCH (03:42)
[2020-04-22 05:27] LABS: BASOPHILS % (AUTO) 0 % (0-10); EOSINOPHILS # (AUTO) 0.1 10^3/uL (0.0-0.3); EOSINOPHILS % (AUTO) 1 % (0-10); HEMATOCRIT 27 % (35-52); HEMOGLOBIN 8.7 g/dL (11.5-16.0); LYMPHOCYTES # (AUTO) 2.9 10^3/uL (1.0-4.0); LYMPHOCYTES % (AUTO) 42 % (12-44); MEAN CORPUSCULAR HEMOGLOBIN 30 pg (25-34); MEAN CORPUSCULAR HGB CONC 33 g/dL (32-36); MEAN CORPUSCULAR VOLUME 93 fL (80-99); MEAN PLATELET VOLUME 9.4 fL (9.0-12.2); MONOCYTES # (AUTO) 0.7 10^3/uL (0.0-1.0); MONOCYTES % (AUTO) 10 % (0-12); NEUTROPHILS # (AUTO) 3.1 10^3/uL (1.8-7.8); NEUTROPHILS % (AUTO) 46 % (42-75); PLATELET COUNT 241 10^3/uL (130-400); WHITE BLOOD COUNT 6.8 10^3/uL (4.3-11.0)
[2020-04-22] MEDS: fentaNYL INJECTION 100 MCG/2 ML AMP IV PRN (05:32)
--- NOTE | 2020-04-22 07:49 | Progress Note ---
Subjective Date Seen by a Provider: Apr 22, 2020 Time Seen by a Provider: 07:30 Subjective/Events-last exam Continues to have pain. WBC has improved but Hgb has dropped. She states the pain is lower in the abdomen., Vitals are stable Drop in Hgb could be dilutional but with the continued pain and the drop in Hgb need to investigate Plan laparoscopy with evacuation of fluid/blood with possible salpingectomy Review of Systems General: Fatigue HEENT: No Head Aches, No Eye Pain, No Ear Pain, No Dysphasia, No Sinus Congestion, No Post Nasal Drip, No Sore Throat Pulmonary: No Dyspnea, No Cough, No Pleuritic Chest Pain Cardiovascular: No: Chest Pain, Palpitations, Orthopnea, Paroxysmal Noc. Dyspnea, Edema, Lt Headedness Gastrointestinal: Nausea; No: Vomiting, Diarrhea Musculoskeletal: No: other, neck pain, shoulder pain, arm pain, back pain, hand pain, leg pain, foot pain Neurological: No: Weakness, Numbness, Incoordination, Change in speech, Confusion, Seizures, Other Focused Exam Lactate Level 04/21/20 14:17: Lactic Acid Level 0.81 Objective Exam Vital Signs Date Time Temp Pulse Resp B/P (MAP) Pulse Ox O2 Delivery O2 Flow Rate FiO2 04/22/20 06:20 36.7 79 18 100/52 (68) 98 Room Air 04/22/20 03:45 36.7 72 16 100/60 (73) 98 Room Air 04/21/20 23:25 36.2 78 18 108/51 (70) 98 Room Air 04/21/20 19:30 37.3 75 18 110/59 (76) 100 Room Air 04/21/20 16:00 37.1 90 18 115/72 (86) 100 Room Air 04/21/20 14:00 37.1 84 18 115/75 (88) 100 Room Air 04/21/20 13:40 93 20 132/80 98 Room Air 04/21/20 08:00 36.0 125 24 130/80 (97) 100 Room Air I & O 04/22/20 07:00 Intake Total 3320 ml Balance 3320 ml Capillary Refill : Less Than 3 Seconds General Appearance: WD/WN, Mild Distress Respiratory: Chest Non Tender, Lungs Clear, Normal Breath Sounds Cardiovascular: Regular Rate, Rhythm Gastrointestinal: normal bowel sounds; No guarding; rebound, tenderness Neurologic/Psychiatric: Alert, Oriented x3 Skin: Normal Color, Warm/Dry Results Lab Laboratory Tests 04/21/20 08:05: Coronavirus 2019 ([facility]IN) Negative 04/21/20 08:10: White Blood Count 14.4H, Red Blood Count 3.84, Hemoglobin 11.8, Hematocrit 35, Mean Corpuscular Volume 90, Mean Corpuscular Hemoglobin 31, Mean Corpuscular Hemoglobin Concent 34, Red Cell Distribution Width 12.5, Platelet Count 357, Mean Platelet Volume 9.6, Immature Granulocyte % (Auto) 0, Neutrophils (%) (Auto) 69, Lymphocytes (%) (Auto) 23, Monocytes (%) (Auto) 7, Eosinophils (%) (Auto) 0, Basophils (%) (Auto) 0, Neutrophils # (Auto) 10.0H, Lymphocytes # (Auto) 3.3, Monocytes # (Auto) 1.0, Eosinophils # (Auto) 0.1, Basophils # (Auto) 0.1, Immature Granulocyte # (Auto) 0.0, Neutrophils % (Manual) 64, Lymphocytes % (Manual) 26, Monocytes % (Manual) 8, Eosinophils % (Manual) 1, Basophils % (Manual) 1, Blood Morphology Comment NORMAL, Sodium Level 139, Potassium Level 3.7, Chloride Level 108H, Carbon Dioxide Level 20L, Anion Gap 11, Blood Urea Nitrogen 17, Creatinine 0.70, Estimat Glomerular Filtration Rate > 60, BUN/Creatinine Ratio 24, Glucose Level 117H, Calcium Level 8.6, Corrected Ca lcium 8.4L, Total Bilirubin 0.9, Aspartate Amino Transf (AST/SGOT) 11, Alanine Aminotransferase (ALT/SGPT) 12, Alkaline Phosphatase 64, C-Reactive Protein High Sensitivity 0.24, Total Protein 6.8, Albumin 4.2, Lipase 14 04/21/20 09:10: Urine Color ORANGE, Urine Clarity SL CLOUDY, Urine pH 6.5, Urine Specific [place] 1.025H, Urine Protein TRACEH, Urine Glucose (UA) NEGATIVE, Urine Ketones NEGATIVE, Urine Nitrite NEGATIVE, Urine Bilirubin NEGATIVE, Urine Urobilinogen 0.2, Urine Leukocyte Esterase TRACEH, Urine RBC (Auto) NEGATIVE, Urine RBC NONE, Urine WBC 2-5, Urine Squamous Epithelial Cells 2-5, Urine Crystals NONE, Urine Bacteria MODERATEH, Urine Casts NONE, Urine Mucus MODERATEH, Urine Culture Indicated YES, Syphilis Serology Non-Reactive 04/21/20 14:17: Prothrombin Time 14.9H, INR Comment 1.1, Activated Partial Thromboplast Time 27, Lactic Acid Level 0.81, Human Chorionic Gonadotropin, Quant < 5 04/22/20 05:10: White Blood Count 6.8, Red Blood Count 2.88L, Hemoglobin 8.7#L, Hematocrit 27L, Mean Corpuscular Volume 93, Mean Corpuscular Hemoglobin 30, Mean Corpuscular Hemoglobin Concent 33, Red Cell Distribution Width 12.5, Platelet Count 241, Mean Platelet Volume 9.4, Immature Granulocyte % (Auto) 0, Neutrophils (%) (Auto) 46, Lymphocytes (%) (Auto) 42, Monocytes (%) (Auto) 10, Eosinophils (%) (Auto) 1, Basophils (%) (Auto) 0, Neutrophils # (Auto) 3.1, Lymphocytes # (Auto) 2.9, Monocytes # (Auto) 0.7, Eosinophils # (Auto) 0.1, Basophils # (Auto) 0.0, Immature Granulocyte # (Auto) 0.0 Assessment/Plan Assessment/Plan Assess & Plan/Chief Complaint 1. acute abdominal pain 2. Right tuboovarian abscess Plan - laparoscopy with evacuation of hematoperitoneum vs purulent fluid and possible right salpingectomy, OIP risks include bleeding, infection, injury to bowel bladder and ureter. She has been NPO. will use prophylactic antibiotics and SCDs Plan for 900 am APRIL DILL DO Apr 22, 2020 07:49
[2020-04-22] MEDS ORDERED: LIDOCAINE/EPI 1%-1:100,000 (XYLOCAINE) 50 ML ONE (08:08)
[2020-04-22 08:20] LABS: BASOPHILS % (AUTO) 1 % (0-10); EOSINOPHILS # (AUTO) 0.1 10^3/uL (0.0-0.3); EOSINOPHILS % (AUTO) 1 % (0-10); HEMATOCRIT 29 % (35-52); HEMOGLOBIN 9.7 g/dL (11.5-16.0); LYMPHOCYTES # (AUTO) 2.4 10^3/uL (1.0-4.0); LYMPHOCYTES % (AUTO) 39 % (12-44); MEAN CORPUSCULAR HEMOGLOBIN 31 pg (25-34); MEAN CORPUSCULAR HGB CONC 34 g/dL (32-36); MEAN CORPUSCULAR VOLUME 92 fL (80-99); MEAN PLATELET VOLUME 9.5 fL (9.0-12.2); MONOCYTES # (AUTO) 0.7 10^3/uL (0.0-1.0); MONOCYTES % (AUTO) 11 % (0-12); NEUTROPHILS # (AUTO) 3.1 10^3/uL (1.8-7.8); NEUTROPHILS % (AUTO) 49 % (42-75); PLATELET COUNT 258 10^3/uL (130-400); WHITE BLOOD COUNT 6.3 10^3/uL (4.3-11.0)
[2020-04-22] MEDS ORDERED: LACTATED RINGERS 1,000 ML IV PRN ×2 (08:30→08:45)
[2020-04-22] MEDS ORDERED: ONDANSETRON 4 MG/2 ML (SDV) Z0FRAN IV ONE (08:45)
[2020-04-22] MEDS ORDERED: ceFAZolin 2 GM IV Premixed 50 ML IV ONE (08:45)
[2020-04-22] MEDS ORDERED: ONDANSETRON 4 MG/2 ML (SDV) Z0FRAN ONE ×2 (08:46→08:51)
[2020-04-22] MEDS ORDERED: MIDAZOLAM 2 MG/2 ML (VERSED) VIAL ONE (08:51)
[2020-04-22] MEDS ORDERED: fentaNYL INJECTION 100 MCG/2 ML AMP ONE (08:51)
[2020-04-22] MEDS ORDERED: LIDOCAINE PF 2% 5 ML (XYLOCAINE) VIAL ONE (08:51)
[2020-04-22] MEDS ORDERED: proPOfol 200 MG/20 ML (DIPRIVAN) VIAL IV ONE (08:51)
[2020-04-22] MEDS ORDERED: SEVOFLURANE (ULTANE) 15 ML INHAL SOLN ONE ×3 (08:51→10:05)
[2020-04-22] MEDS ORDERED: ROCURONIUM 10 MG/ML 5 ML SYRINGE IV ONE (08:51)
[2020-04-22] MEDS ORDERED: GLYCOPYRROLATE 0.2 MG/ML (ROBINUL) 2 ML VIAL ONE (10:11)
[2020-04-22] MEDS ORDERED: NEOSTIGMINE 3 MG/3 ML VIAL ONE (10:11)
[2020-04-22] MEDS ORDERED: HYDROmorphone 2 MG/ML VIAL (DILAUDID) ONE ×2 (10:15→10:48)
[2020-04-22] MEDS ORDERED: KETOROLAC 30 MG/ML VIAL ONE (10:23)
--- NOTE | 2020-04-22 10:33 | Operative Report ---
Operative Report Date of Procedure/Surgery Apr 22, 2020 Surgeon (s) APRIL DILL DO Petal Shaper Hand (s): Mckinley Haas, MS III Post-Operative Diagnosis ruptured right ovarian cyst, hematoperitoneum Procedure Performed Laparoscopy with evacuation of hematoperitoneum, excision of right ovarian cyst removal of IUD Description of Procedure Anesthesia Type: General Estimated blood loss (mL): 500 not acute Specimen(s) collected/removed right ovarian cyst IUD for culture Description of the Procedure The patient was admitted from the ED yesterday due to acute onset of right lower quadrant pain. CT and ultrasound suggested a tubo-ovarian abscess. She was afebrile but had an elevated white count. She was started on Zosyn and doxycycline. This morning her white count was normal but her hemoglobin had had a dramatic drop. Her pain was changed, and instead of in the right upper quadrant she states it had moved down lower to the pelvis. Due to the drop in hemoglobin and the continued pain the plan was made to proceed with laparoscopy. She did have a negative hCG which ruled out a ruptured ectopic . In addition she had a ParaGard IUD/copper IUD to prevent , but also does not prevent ovulation. In addition and intrauterine device increases the risk of pelvic inflammatory disease. So prior to surgery, we discussed removal of the IUD and starting a different form of contraception. She opted to start oral contraceptives with the removal of the IUD. With informed consent the patient was taken to the operating room where general anesthetic was found to be adequate. Her hemoglobin had dropped from 11.5-8.7 overnight. However it did appear that she did have a delusional affect. In addition it was determined that her morning hemoglobin was drawn above her IV site without stopping the IV. So it was repeated from the other arm and her hemoglobin and on repeat ABC was 9.7. However this still was a 2 g dropped from the day prior. She was prepped and draped in the usual sterile fashion in the dorsal lithotomy position. The bladder was drained with a straight catheter of clear yellow urine. There was 500 mL of urine removed from the bladder. A speculum was placed in the vagina and the cervix was visualized the IUD strings were seen. In addition to this IUD being a nidus of infection, though the IUD appears to be in the uterus on CT and ultrasound, on ultrasound it does appear to be in the lower uterine segment and cervix. The ParaGard IUD is not effective and if it is not in the uterine cavity. The anterior lip of the cervix was grasped with a tenaculum. The IUD strings were visualized and grasped and the IUD was removed without difficulty. A uterine manipulator was then placed into the uterus to provide a means of manipulation. Attention was turned to the abdomen where the umbilicus was injected with 1 percent lidocaine with epinephrine. A 5 mm skin incision was then made and the varies needle was inserted. Intra-abdominal placement was confirmed with a drop in pressure and the saline drop test. At this point a 5 mm risk go was advanced under direct visualization with the Optiview. The patient was then placed in Trendelenburg position and it was noted that she had clotted blood in the pelvis and unclotted blood in the right upper quadrant. There was no evidence of any purulent material The findings were as mentioned above. 2 additional 5 mm trochars were placed in the left lower quadrant lateral to the rectus muscles and avoiding the inferior epigastric vessels. The ureters were placed after injecting the skin with 1 percent lidocaine with epinephrine. And then the 5 mm trochars were advanced under direct visualization. At this point the pelvis was irrigated. I could not initially see where the bleeding was coming from. I suctioned clotted and unclotted blood from the pelvis. I also irrigated copiously with sterile water. At this point I could see that the left tube and ovary appeared normal. But there was a large ovarian cyst on the right ovary. And this was ruptured and was actively bleeding At this point I opted to remove the right ovarian cyst. The right tube appeared normal. I inserted a Harmonic scalpel and was able to remove the cyst from the right ovary. However, there continued to be bleeding from the peripheral edges. This was controlled with cautery. I then placed Surgicel in the cyst base as well as along the edges of the cyst. The pelvis was then again irrigated and there was no acute bleeding noted from the ovary. The lower of the left trochars was then increased to allow insertion of a 10-12 mm trocar. I injected the skin with lidocaine with epinephrine first. The trocar was now advanced under direct visualization. I then placed the Endo Catch into the pelvis and placed the cyst wall segments into the Endo Catch there also was a large clot that I was unable to suction and this was placed into the Endo Catch as well. These were removed through the left lower quadrant trocar and sent for pathology At this point the patient was placed in reverse Trendelenburg and any additional blood was was suctioned from the pelvis. I visualized the upper abdomen and there is no evidence of current bleeding and the blood that previously was noted has been irrigated and suctioned. The gallbladder appears normal but is dilated, but this would be normal in a patient who has been nothing by mouth. At this point the left lower quadrant trocar was removed under direct visualization. excess gas was suctioned from the abdomen. And the other trochars were removed from the abdomen The fascial incision in the left lower quadrant was closed with a [id number] stitch of 0 Vicryl. The skin was closed with 4-0 Monocryl in interrupted fashion. The other incisions and this left lower quadrant incisions were also treated with surgical glue. Bandages were placed. The instruments were removed from the vagina. The patient was awakened and taken to recovery room in stable condition. Sponge lap needle and instrument counts were correct 2. Findings of the Procedure 500 ml of clotted blood in the pelvic and abdomen ruptured/bleeding right ovarian cyst with enlargement Left ovary appeared wnl tubes appeared wnl Allergies and Home Medications Allergies Coded Allergies: NKANo Known Allergies (Verified Allergy, Unknown, 06/14/06) Home Medications Cyclobenzaprine HCl 10 Mg Tablet, 10 MG PO HS PRN for SPASMS Prescribed by: CHETAN HERNANDES on 10/03/16 0213 Sertraline HCl 100 Mg Tablet, 100 MG PO DAILY, (Reported) Patient Home Medication List Home Medication List Reviewed: Yes APRIL DILL DO Apr 22, 2020 10:33
[2020-04-22] MEDS ORDERED: KETOROLAC 30 MG/ML VIAL IVP ONE (10:45)
[2020-04-22] MEDS ORDERED: morphine INJ 4 MG/ML 1 ML (VIAL/SYRINGE) IV PRN (10:45)
[2020-04-22] MEDS ORDERED: morphine INJ 10 MG/ML 1ML (SYR OR VIAL) IVP ONE (10:45)
[2020-04-22] MEDS ORDERED: PATIENT MAY USE OWN MEDS, ALL PO SCH (10:45)
[2020-04-22] MEDS ORDERED: ONDANSETRON 4 MG/2 ML (SDV) Z0FRAN IV PRN (10:45)
[2020-04-22] MEDS ORDERED: LACTATED RINGERS 1,000 ML IV SCH (10:45)
[2020-04-22] MEDS ORDERED: ONDANSETRON 4 MG/2 ML (SDV) Z0FRAN IVP PRN (10:45)
[2020-04-22] MEDS ORDERED: HYDROmorphone 2 MG/ML VIAL (DILAUDID) IV ONE (10:45)
[2020-04-22] MEDS ORDERED: KETOROLAC 30 MG/ML VIAL IV SCH (10:45)
[2020-04-22] MEDS ORDERED: ACET-93 PO (11:11)
[2020-04-22] MEDS ORDERED: FERR-84 PO (11:11)
[2020-04-22] MEDS ORDERED: IBUP-844 PO (11:11)
[2020-04-22] MEDS ORDERED: OXC5T PO (11:11)
[2020-04-22] MEDS ORDERED: NORE-91 PO (11:15)
[2020-04-22] MEDS ORDERED: DOCU-143 PO (11:15)
--- NOTE | 2020-04-22 11:17 | Discharge Inst-Women's Service ---
Discharge Inst-Women's Serv Depart Medication/Instructions New, Converted or Re-Newed RX: RX on Chart Instructions nothing in the vagina for 2 weeks no lifting over 20 lbs x 1 week no driving for 24 hours can return to work in 1 week if pain is controlled Follow up with Dr. Pinto as scheduled in 1-2 weeks Final Diagnosis Ruptured right ovarian cyst hematoperitoneum Problems Reviewed?: Yes Consults/Follow Up Additional Follow Up: Yes (1-[address] Pinto for incision check and to discuss further treatment) Activity Activity: Activity as Tolerated Driving Instructions: No Driving for 24 Hours NO SMOKING: NO SMOKING Nothing Inside Vagina: No Douching, No [place], No Tampons Diet Discharge Diet: No Restrictions Symptoms to Report to : Swelling Increased, Bleeding Excessive, Pain Increased, Fever Over 101 Degrees F, Vaginal Bleeding Increase, Cramps in Feet or Legs, Vaginal Discharge Foul, Dizziness/Fainting For Any Problems or Questions: Contact Your Physician Skin/Wound Care Infection Signs and Symptoms: Increased Redness, Foul Odor of Wound, Increased Drainage, Skin Itchy or Has a Rash, Increased Swelling, Temperature Above 101 F Operative Area Clean and Dry: You May Remove Bandage (on day 3 or if soiled or wet. ) Stitches/[place]/Dermabond: Dermabond Bathing Instructions: APRIL Castelan DO Apr 22, 2020 11:17
[2020-04-22 11:46] LABS: HEMOGLOBIN 9.5 g/dL (11.5-16.0)
[2020-04-22] MEDS ORDERED: ACETAMINOPHEN 500 MG TAB (TYLENOL) PO SCH (14:00)
--- NOTE | 2020-04-23 07:55 | Anesthesia-General Post-Op ---
General Patient Condition Mental Status/LOC: Same as Preop Cardiovascular: Satisfactory Nausea/Vomiting: Absent Respiratory: Satisfactory Pain: Controlled Complications: Absent Post Op Complications Complications None Follow Up Care/Instructions Patient Instructions None needed. Anesthesia/Patient Condition Patient Condition Patient is doing well, no complaints, stable vital signs, no apparent adverse anesthesia problems. No complications reported per nursing. JENNA LANCASTER CRNA Apr 23, 2020 07:55
[2020-04-23] MEDS ORDERED: IBUPROFEN 600 MG (MOTRIN) TAB PO SCH (12:00)
== END 2020-04-22 16:45 | disposition home or self-care (01) ==
LOC: EDUNIT# 07:43 → ER 07:46 → LDRP 12:25 → UNDOADMIN 12:25 → SDC 12:25 → WS 04-22 12:02 → LDRP 04-22 12:02 → UNDODISIN 04-22 16:45 → SDC 04-22 16:45
PROVIDERS: ATTEND Obstetrics & Gynecology
DX: N83.11 Corpus luteum cyst of right ovary (principal); K66.1 Hemoperitoneum; F41.9 Anxiety disorder, unspecified; F32.9 Major depressive disorder, single episode, unspecified; J45.909 Unspecified asthma, uncomplicated; K21.9 Gastro-esophageal reflux disease without esophagitis; Z79.899 Other long term (current) drug therapy; Z79.51 Long term (current) use of inhaled steroids; Z20.822 Contact with and (suspected) exposure to COVID-19; Z83.3 Family history of diabetes mellitus
CPT/HCPCS: 58301; 58662; 71045; 74177; 76705; 76830; 76856; 80053; 81000; 83605; 83690; 84702; 84703; 85007; 85014; 85018; 85025; 85027; 85610; 85730; 86141; 86780; 86850; 86900; 86901; 86920; 87070; 87075; 87081; 87088; 87205; 87491; 87591; 88305; 96361; 96365; 96375; 99284; U0002; 36415; 87635; 90686

== ENCOUNTER 2020-10-25 21:08 | Emergency (ER) | payer OTHER ==
[~2020-10-25] VITALS: Ht 170.1 cm; Wt 75.0 kg
[~2020-10-25 21:08] MED LIST changes: +ACET-93 PO; +FERR-84 PO; +IBUP-844 PO; +NORE-91 PO; +OXC5T PO; +SERT100T PO; -SULF1TAB35 PO
[2020-10-25] MEDS ORDERED: CYCLOBENZAPRINE 10 MG (FLEXERIL) TAB PO STA (22:46)
[2020-10-25] MEDS ORDERED: KETOROLAC 60 MG/2 ML VIAL IM STA (22:46)
--- NOTE | 2020-10-25 22:51 | ED General ---
General Chief Complaint: General Problems/Pain Stated Complaint: HEADACHE/FATIGUE Nursing Triage Note: Pt ambulatory into ER with complaint of Headache, Fatigue x2 days, Nausea, Tingling in Arm today. Pt states that she is vaccinated, and denies being around anyone with covid that she is aware of. (OLIVIA FELIZ) History of Present Illness Date Seen by Provider: Oct 25, 2020 Time Seen by Provider: 22:30 Initial Comments 19-year-old female presents for generalized fatigue, myalgias and intermittent headaches. She has been taking Tylenol, Excedrin, ibuprofen and aspirin intermittently with no significant improvement in her symptoms. She has received her Covid vaccine. She reports that her son and were exposed and have symptoms but have not been tested. She reports no nausea presently but she does have it on occasion when having a headache. She has no vomiting or diarrhea. She has not been evaluated by her primary care provider. Timing/Duration: 4-5 Days Associated Systoms: No Cough, No Fever/Chills; Headaches, Malaise; No Shortness of Air, No Weakness (OLIVIA FELIZ) Allergies and Home Medications Allergies Coded Allergies: JONATHONANo Known Allergies (Verified Allergy, Unknown, 06/14/06) Home Medications Acetaminophen 500 Mg Tablet, 1,000 MG PO Q8HR Prescribed by: APRIL DILL on 04/22/20 1111 Cyclobenzaprine HCl 10 Mg Tablet, 10 MG PO HS PRN for SPASMS Prescribed by: CHETAN HERNANDES on 10/03/16 0213 Docusate Sodium 100 Mg Capsule, 100 MG PO BID Prescribed by: APRIL DILL on 04/22/20 1115 Ferrous Sulfate 325 Mg Tablet, 325 MG PO DAILY Prescribed by: APRIL DILL on 04/22/20 1111 Ibuprofen 600 Mg Tablet, 600 MG PO Q6HR Prescribed by: APRIL DILL on 04/22/20 1111 Norethindrone-E.estradiol-Iron 1 Each Tablet, 1 EACH PO DAILY Prescribed by: APRIL DILL on 04/22/20 1115 Oxycodone Hcl 5 Mg Tab, 5 MG PO Q4HR Prescribed by: APRIL DILL on 04/22/20 1111 Sertraline HCl 100 Mg Tablet, 100 MG PO DAILY, (Reported) Patient Home Medication List Home Medication List Reviewed: Yes (OLIVIA FELIZ) Review of Systems Review of Systems Constitutional: see HPI, malaise Genitourinary: no symptoms reported, see HPI LMP: Sep 29, 2020 Musculoskeletal: see HPI, muscle cramps Psychiatric/Neurological: See HPI, Headache (OLIVIA FELIZ) All Other Systems Reviewed Negative Unless Noted: Yes (OLIVIA FELIZ) Past Wtkrmly-Spvzvw-Noondz Hx Patient Social History Use of E-Cig and/or Vaping dev: No Substance use?: No Alcohol Use?: No Pt feels they are or have been: No (OLIVIA FELIZ) Immunizations Up To Date Tetanus Booster (TDap): Unknown PED Vaccines UTD: Yes Influenza Vaccine Up-to-Date: No; Not Current Second COVID19 Vaccination Anthony: 08/18 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: [employer] (OLIVIA FELIZ) Seasonal Allergies Seasonal Allergies: No (OLIVIA FELIZ) Past Medical History Surgeries: Yes (CYSTOSCOPY; LAP APPY 11/27/14) Appendectomy, Tonsillectomy Respiratory: Yes (PRN INHALER) Asthma Currently Using CPAP: No Currently Using BIPAP: No Cardiac: No Neurological: No Reproductive Disorders: No Female Reproductive Disorders: Denies TALENT ACQUISITION MANAGER History: IUD UTI-Chronic Gastrointestinal: No Musculoskeletal: No Endocrine: No Cancer: No Psychosocial: Yes Anxiety, Depression Integumentary: No Blood Disorders: No (OLIVIA FELIZ) Family Medical History Reviewed Nursing Family Hx (OLIVIA FELIZ) Anxiety disorder 19 MOTHER Arthritis 19 MOTHER Diabetes mellitus 19 MOTHER FH: depression 19 MOTHER Hypercholesterolemia 19 MOTHER Hypertension 19 MOTHER Physical Exam Vital Signs Vital Signs - First Documented 10/25/20 21:39 Temp 37.0 Pulse 82 Resp 22 B/P (MAP) 130/93 (105) Pulse Ox 99 O2 Delivery Room Air (CHETAN YANG MD) Vital Signs Capillary Refill : Less Than 3 Seconds (OLIVIA FELIZ) Height, Weight, BMI Height: 5'7.00" Weight: 215lbs. 0.0oz. [id number]; 25.00 BMI Method:Stated General Appearance: No Apparent Distress, WD/WN Eyes: Bilateral Eye Normal Inspection, Bilateral Eye PERRL, Bilateral Eye EOMI HEENT: PERRL/EOMI, TMs Normal, Normal ENT Inspection, Pharynx Normal Neck: Full Range of Motion, Normal Inspection, Non Tender, Supple Respiratory: Chest Non Tender, Lungs Clear, Normal Breath Sounds Cardiovascular: Regular Rate, Rhythm, No Murmur, Normal Peripheral Pulses Gastrointestinal: Normal Bowel Sounds, Non Tender, Soft Extremity: Normal Capillary Refill, Normal Inspection, Normal Range of Motion Neurologic/Psychiatric: Alert, Oriented x3, No Motor/Sensory Deficits, Normal Mood/Affect Skin: Normal Color, Warm/Dry (OLIVIA FELIZ) Progress/Results/Core Measures Suspected Sepsis SIRS Temperature: Pulse: 82 Respiratory Rate: 22 Blood Pressure 130 /93 Mean: 105 (OLIVIA FELIZ) Results/Orders Lab Results Laboratory Tests Test 10/25/20 21:40 Range/Units Influenza Type A (RT-PCR) Not Detected Not Detecte Influenza Type B (RT-PCR) Not Detected Not Detecte SARS-CoV-2 RNA (RT-PCR) Not Detected Not Detecte (CHETAN YANG MD) My Orders Orders - CHETAN YANG MD Covid 19 Inhouse Test (10/25/20 21:23) Influenza A And B By Pcr (10/25/20 21:23) (CHETAN YANG MD) Vital Signs/I&O 10/25/20 10/25/20 21:39 23:01 Temp 37.0 Pulse 82 91 Resp 22 18 B/P (MAP) 130/93 (105) 128/81 Pulse Ox 99 99 O2 Delivery Room Air Room Air (CHETAN YANG MD) Vital Signs/I&O Capillary Refill : Less Than 3 Seconds (OLIVIA FELIZ) Blood Pressure Mean: 105 Departure Impression Primary Impression: Headache Qualified Codes: R51.9 - Headache, unspecified Disposition: HOME, SELF-CARE Condition: Improved Departure-Patient Inst. Decision time for Depature: 22:50 (OLIVIA FELIZ) Referrals: [facility] (PCP/Family) Primary Care Physician Patient Instructions: Headache, Adult (DC) Add. Discharge Instructions: Increase fluids, 16 ounces every 2 hours while awake. Alternate between ibuprofen 600 mg and Tylenol 650 mg every 4 hours. Take Benadryl 50 mg at bed time. Follow-up with your primary care provider if symptoms are not improving or worsen. Encourage her family members to be tested at [facility] for Covid, through [facility]. Return to the emergency department for new, urgent healthcare needs. All discharge instructions reviewed with patient and/or family. Voiced understanding. ATTENDING PHYSICIAN NOTE: I was physically present as attending physician in the emergency department during the care of this patient, but I was not directly involved in the decision making or delivery of care for this patient. (CHETAN YANG MD) OLIVIA FELIZ Oct 25, 2020 22:51 CHETAN YANG MD Oct 26, 2020 07:43
[2020-10-25 23:01] VITALS: BP 128/81
== END 2020-10-25 23:01 | disposition home or self-care (01) ==
LOC: EDUNIT# 21:08 → ER 21:10
DX: R51.9 Headache, unspecified (principal); J45.909 Unspecified asthma, uncomplicated; F41.9 Anxiety disorder, unspecified; F32.9 Major depressive disorder, single episode, unspecified; Z20.822 Contact with and (suspected) exposure to COVID-19; Z79.899 Other long term (current) drug therapy
CPT/HCPCS: 87636; 99284